=== PATIENT | male | born 1935 | race Caucasian/White ===

== ENCOUNTER 2018-08-28 12:11 | Emergency (ER) | payer MEDICARE, OTHER ==
[~2018-08-28] VITALS: Ht 188 cm; Wt 81.8 kg
--- NOTE | 2018-08-28 12:22 | NUR ---
[id number]
[2018-08-28 13:39] LABS: BASOPHILS % (AUTO) 0.4 % (0-1); EOSINOPHILS # (AUTO) 0.1 X10'3 (0-0.9); EOSINOPHILS % (AUTO) 1.9 % (0-6); HEMATOCRIT 43.7 % (42.0-52.0); LYMPHOCYTES # (AUTO) 1.6 X10'3 (1.1-4.8); LYMPHOCYTES % (AUTO) 20.5 % (21-51); MEAN CORPUSCULAR HEMOGLOBIN 31.5 PG (27.0-31.0); MEAN CORPUSCULAR HGB CONC 34.3 g/dL (33.0-36.5); MEAN CORPUSCULAR VOLUME 91.9 FL (78-98); MONOCYTES # (AUTO) 0.8 X10'3 (0-0.9); MONOCYTES % (AUTO) 9.8 % (2-12); NEUTROPHILS # (AUTO) 5.2 X10'3 (1.8-7.7); NEUTROPHILS % (AUTO) 67.4 % (42-75); PLATELET COUNT 117 X10'3 (140-440); RED BLOOD COUNT 4.76 X10'6 (4.70-6.10); RED CELL DISTRIBUTION WIDTH 14.6 % (11.5-14.5); WHITE BLOOD COUNT 7.7 X10'3 (4.5-11.0)
[2018-08-28 13:47] LABS: ALANINE AMINOTRANSFERASE 50 U/L (12-78); ALBUMIN 3.6 G/DL (3.4-5.0); ALBUMIN/GLOBULIN RATIO 0.8 (1.1-1.5); ALKALINE PHOSPHATASE 107 IU/L (46-116); ANION GAP 5 (8-16); ASPARTATE AMINO TRANSFERASE 41 U/L (10-37); BILIRUBIN,TOTAL 0.9 MG/DL (0.1-1.0); BLOOD UREA NITROGEN 13 MG/DL (7-18); BUN/CREATININE RATIO 9.2 (5.4-32.0); CHLORIDE 91 MMOL/L (99-107); CREATININE 1.41 MG/DL (0.60-1.10); GLUCOSE 98 MG/DL (70-104); INR 1.2 INR; PARTIAL THROMBOPLASTIN TIME 28 SECONDS (22-32); POTASSIUM 4.5 MMOL/L (3.5-5.1); PROTHROMBIN TIME 11.7 SECONDS (9.0-12.0); SODIUM 128 MMOL/L (135-145); TOTAL CARBON DIOXIDE 32.5 MMOL/L (24-32); TOTAL PROTEIN 7.9 G/DL (6.4-8.2); eGFR 48 ML/MIN
[2018-08-28] MEDS ORDERED: ALPRAZolam 0.5mg tablet PO ONE (14:50)
--- NOTE | 2018-08-28 14:56 | NUR ---
Call placed to Dr. Verdin for Dr. Zarco- message left
--- NOTE | 2018-08-28 15:07 | NUR ---
DR WILKERSON AT BEDSIDE TO DISCUSS PLAN OF CARE TO ADMIT PT TO HOSPITAL, PT IS 83 YO MALE C/O NEAR SYNCOPE, PT HAD BREAKFAST AND WAS RUNNING ERRANDS WITH A FRIEND, PT WAS SITTING IN THE TRUCK "MY EYES ROLLED BACK AND I GOT ALL STICKY AND WHITE...I THINK I PASSED OUT BUT I AM NOT SURE", NO CHEST PAIN/DISCOMFORT, NO SOB, PT IS G[employer] 15, ALERT AND ORIENTED, RESP EVEN AND UNLABORED,
[2018-08-28] MEDS ORDERED: normal saline 1000ml 1,000 ML IV ONE (15:35)
[2018-08-28] MEDS ORDERED: ATOR10TA PO (15:51)
[2018-08-28] MEDS ORDERED: ALPR0.5T8 PO (15:51)
[2018-08-28] MEDS ORDERED: ISOS30TA6 PO (15:51)
[2018-08-28] MEDS ORDERED: ASPI-611 PO (15:51)
[2018-08-28] MEDS ORDERED: LISI-644 PO (15:51)
[2018-08-28] MEDS ORDERED: OLAN10TA3 PO (15:51)
[2018-08-28] MEDS ORDERED: CLON-528 PO (15:51)
[2018-08-28] MEDS ORDERED: CLOP75TA15 PO (15:51)
--- NOTE | 2018-08-28 16:08 | NUR ---
PT IS RESTING QUIETLY ON ERWIN, DAUGHTER AT BEDSIDE
[2018-08-28 16:45] VITALS: BP 136/70
== END 2018-08-28 16:47 | disposition home or self-care (01) ==
LOC: ER 12:12
DX: R42 Dizziness and giddiness (principal); E87.1 Hypo-osmolality and hyponatremia; F41.9 Anxiety disorder, unspecified; Z79.82 Long term (current) use of aspirin; Z79.899 Other long term (current) drug therapy
CPT/HCPCS: 36415; 70450; 71045; 80053; 84484; 85025; 85610; 85730; 93005; 96360; 99284; J7030

== ENCOUNTER 2018-09-05 01:51 | Emergency (ER) | payer MEDICARE, MEDICAID, OTHER ==
[~2018-09-05] VITALS: Ht 188 cm; Wt 77.0 kg
[~2018-09-05 01:51] MED LIST: ALPR0.5T8 PO; ASPI-611 PO; ATOR10TA PO; CLON-528 PO; CLOP75TA15 PO; ISOS30TA6 PO; LISI-644 PO; OLAN10TA3 PO
--- NOTE | 2018-09-05 02:07 | NUR ---
LABS CANCELLED THEY WERE JUST ORDERED EARLIER THIS EVENING. PT HAS TWO ACCOUNTS AND RESULTS SHOW IN THE OTHER CHART.
[2018-09-05 03:42] LABS: ALANINE AMINOTRANSFERASE 41 U/L (12-78); ALBUMIN 3.5 G/DL (3.4-5.0); ALBUMIN/GLOBULIN RATIO 0.9 (1.1-1.5); ALKALINE PHOSPHATASE 95 IU/L (46-116); ANION GAP 7 (8-16); ASPARTATE AMINO TRANSFERASE 33 U/L (10-37); BILIRUBIN,TOTAL 0.8 MG/DL (0.1-1.0); BLOOD UREA NITROGEN 17 MG/DL (7-18); BUN/CREATININE RATIO 12.7 (5.4-32.0); CALCIUM 9.2 MG/DL (8.5-10.1); CHLORIDE 98 MMOL/L (99-107); CREATININE 1.34 MG/DL (0.60-1.10); POTASSIUM 3.7 MMOL/L (3.5-5.1); SODIUM 134 MMOL/L (135-145); TOTAL CARBON DIOXIDE 29.4 MMOL/L (24-32); TOTAL PROTEIN 7.6 G/DL (6.4-8.2); eGFR 51 ML/MIN
[2018-09-05 03:44] LABS: GLUCOSE 118 MG/DL (70-104)
[2018-09-05 03:51] LABS: MAGNESIUM 1.7 MG/DL (1.5-2.4)
[2018-09-05 04:03] LABS: BASOPHILS % (AUTO) 0.4 % (0-1); EOSINOPHILS # (AUTO) 0.1 X10'3 (0-0.9); EOSINOPHILS % (AUTO) 1.9 % (0-6); HEMOGLOBIN 14.7 g/dl (14.0-17.9); LYMPHOCYTES # (AUTO) 1.7 X10'3 (1.1-4.8); LYMPHOCYTES % (AUTO) 26.4 % (21-51); MEAN CORPUSCULAR HEMOGLOBIN 31.5 PG (27.0-31.0); MEAN CORPUSCULAR HGB CONC 34.1 g/dL (33.0-36.5); MEAN CORPUSCULAR VOLUME 92.5 FL (78-98); MONOCYTES # (AUTO) 0.6 X10'3 (0-0.9); MONOCYTES % (AUTO) 9.4 % (2-12); NEUTROPHILS # (AUTO) 4.1 X10'3 (1.8-7.7); NEUTROPHILS % (AUTO) 61.9 % (42-75); PLATELET COUNT 104 X10'3 (140-440); RED BLOOD COUNT 4.65 X10'6 (4.70-6.10); RED CELL DISTRIBUTION WIDTH 14.6 % (11.5-14.5); WHITE BLOOD COUNT 6.6 X10'3 (4.5-11.0)
--- NOTE | 2018-09-05 07:00 | NUR ---
PATIENT ANXIOUS BECAUSE HE HAS NOT BEEN SEEN YET AND WANTS TO LEAVE. PATIENT REASSURED THAT ER MD WOULD BE IN SOON TO SEE HIM. RESP UNLABORED. HR 97.
[2018-09-05 07:41] LABS: TROPONIN I < 0.04 NG/ML (0.0-0.05)
[2018-09-05 08:02] VITALS: BP 132/49
== END 2018-09-05 08:04 | disposition home or self-care (01) ==
LOC: ER 01:51
DX: R53.1 Weakness (principal); R07.89 Other chest pain; R42 Dizziness and giddiness; R06.02 Shortness of breath; F17.200 Nicotine dependence, unspecified, uncomplicated; Z79.82 Long term (current) use of aspirin; Z79.899 Other long term (current) drug therapy
CPT/HCPCS: 36415; 80053; 83735; 83880; 84443; 84484; 85025; 93005; 99284